=== PATIENT | female | born 2005 | race Two or more races ===

== ENCOUNTER 2024-03-11 18:47 | Emergency (ER) | payer OTHER ==
[~2024-03-11] VITALS: Ht 177.8 cm; Wt 100.8 kg
[2024-03-11 19:22] VITALS: BP 120/69; PULSE 95; RESP 18; O2SAT 97
[2024-03-11 19:59] LABS: Basophils # (auto) 0.1 10 ^3/uL (0-0.2); Basophils % (auto) 0.5 % (0.0-2.0); Eosinophils # (auto) 0.1 10 ^3/uL (0-0.8); Hematocrit 43.6 % (36.0-46.0); Hemoglobin 14.7 g/dL (12.2-16.2); Lymphocytes # (auto) 1.9 10 ^3/uL (0.4-5.4); Lymphocytes % (auto) 15.1 % (10.0-50.0); Mean Corpuscular Hemoglobin 28.9 pg (28.0-32.0); Mean Corpuscular Hgb Conc. 33.7 g/dL (32.0-36.0); Mean Corpuscular Volume 85.6 fL (80.0-100.0); Monocytes # (auto) 0.7 10 ^3/uL (0-1.3); Monocytes % (auto) 5.8 % (0.0-12.0); Neutrophils # (auto) 9.9 10 ^3/uL (1.6-8.6); Neutrophils % (auto) 77.6 % (37.0-80.0); Red Blood Cells 5.09 10^6/uL (4.0-5.20); Red Cell Distribution Width 14.7 % (11.8-14.3); White Blood Cell 12.7 10^3/uL (4.4-10.8)
== END 2024-03-11 21:48 | disposition left against medical advice (07) ==
LOC: ER 18:47
DX: O20.0 Threatened abortion (principal); R10.2 Pelvic and perineal pain; D72.829 Elevated white blood cell count, unspecified; Z3A.01 Less than 8 weeks gestation of pregnancy
CPT/HCPCS: 36415; 84702; 85025